=== PATIENT | male | born 1985 | race Caucasian/White ===

== ENCOUNTER → 2020-12-05 | Outpatient (CLI) | payer OTHER ==
--- NOTE | 2020-12-05 15:39 | US ---
EXAMINATION TYPE: US thyroid st tissue head/neck DATE OF EXAM: 12/05/2020 COMPARISON: NONE CLINICAL HISTORY: E04.1 Thyroid nodule. GLAND SIZE: Right Lobe: 4.9 x 1.4 x 1.9 cm Overall Parenchyma: homogenous Left Lobe: 5.5 x 1.6 x 1.4 cm Overall Parenchyma: homogeneous Isthmus Thickness: 0.2 cm NODULES RIGHT: # of nodules measured on right: 0 LEFT: # of nodules measured on left: 0 ISTHMUS: # of nodules measured in the isthmus: 0 Bilateral neck scanned, left neck 2.6 x 0.6 x 1.4cm lymph node seen lateral and superior to left lobe . Thyroid echotexture is homogenous and symmetric. Benign-appearing node identified in the left lateral neck. IMPRESSION: Benign thyroid ultrasound 2017 ACR TI-RADS LEVEL: *Highest TI-RADS level nodule reported
== END | disposition home or self-care (01) ==
LOC: RADUSWWP 13:39
DX: E04.1 Nontoxic single thyroid nodule (principal)
CPT/HCPCS: 76536

== ENCOUNTER → 2022-07-25 | Outpatient (CLI) | payer OTHER ==
--- NOTE | 2022-07-25 16:33 | US ---
EXAMINATION TYPE: US thyroid st tissue head/neck DATE OF EXAM: 07/25/2022 COMPARISON: 12/05/2020 CLINICAL INDICATION: Male, 36 years old with history of E04.1 NONTOXIC SINGLE THYROID NODULE; lymph n ode GLAND SIZE: Right Lobe: 5.2x1.3x2.0cm Overall Parenchyma: homogenous Left Lobe: 5.5x1.4x1.8cm Overall Parenchyma: homogeneous Isthmus Thickness: 0.4 cm NODULES Several small colloid cysts visualized in thyroid parenchyma bilaterally RIGHT: # of nodules measured on right: 0 LEFT: # of nodules measured on left: 1 1. 0.8 X 0.4 x 0.6 cm Mid Lateral solid or almost completely solid, hypoechoic TR 4 nodule, which i s as wide as it is tall, with smooth margins, without echogenic foci. ISTHMUS: # of nodules measured in the isthmus: 0 Bilateral neck scanned, lymphadenopathy noted on left side. Patient notes area of concern along the lateral left upper neck. Two prominent lymph nodes with hilar flow measured in this area 1.) 2.3x0.7x1.5cm 2.) 2.0x0.5x1.3cm may correlate to lymph node seen prior Largest previously measured 2.6 x 1.4 x 0.6 cm. IMPRESSION: 1. A new 8mm TR4 nodule in the left thyroid lobe can be reassessed at follow-up. 2. Additional small benign bilateral colloid cysts are present. 3. A couple borderline-enlarged lymph nodes along the lateral aspect of the left upper neck at the pa tient's palpable site measuring up to 1.5 cm short axis. One of these may have been present back on 1 suggesting a reactive/post inflammatory etiology. Clinical surveillance is advised. If any further enlargement is noted or suspicious clinical features develop, rescan or consider contrast-enh anced CT of the neck.
== END | disposition home or self-care (01) ==
LOC: RADUSWWP 08:46
PROVIDERS: ATTEND Family Medicine
DX: E04.2 Nontoxic multinodular goiter (principal)
CPT/HCPCS: 76536